=== PATIENT | female | born 1960 | race Caucasian/White ===

== ENCOUNTER → 2024-06-10 | Day surgery (SDC) | payer OTHER | END | disposition home or self-care (01) | LOC: JRADIR 09:27 | PROVIDERS: ATTEND Internal Medicine Endocrinology, Diabetes & Metabolism | PROC: 0GBH3ZX Excision of Right Thyroid Gland Lobe, Percutaneous Approach, Diagnostic (ICD-10-PCS; principal; 2024-06-10) | DX: E04.1 Nontoxic single thyroid nodule (principal) | CPT/HCPCS: 10005; 76942; 88173; 88305-TC ==

== ENCOUNTER 2024-11-25 06:11 | Day surgery (SDC) | payer OTHER ==
[2024-11-22 13:10] VITALS: BMI 37.7
[2024-11-25] MEDS ORDERED: VANCOMYCIN 1,000 MG VIAL (RESTRICTED TO ID ONLY) ONE (07:13)
[2024-11-25] MEDS ORDERED: KETOROLAC TROMETHAMINE 60 MG/2 ML VIAL ONE (07:13)
[2024-11-25] MEDS ORDERED: BUPIVACAINE HCL/PF 2.5 MG/ML - 30 ML VIAL IJ ONE (07:13)
[2024-11-25] MEDS ORDERED: MIDAZOLAM HCL 2 MG/2 ML SINGLE DOSE VIAL ONE ×3 (07:41→08:31)
[2024-11-25] MEDS ORDERED: FENTANYL CITRATE/PF 50 MCG/ML VIAL ONE (07:41)
[2024-11-25] MEDS ORDERED: ROPIVACAINE HCL/PF 100 MG/20 ML VIAL ONE (07:42)
[2024-11-25] MEDS ORDERED: ONDANSETRON 4 MG/2 ML VIAL ONE (08:05)
[2024-11-25] MEDS ORDERED: BUPIVACAINE HCL/PF 0.5% (5MG/ML) 10 ML VIAL ONE (08:08)
[2024-11-25] MEDS ORDERED: TRANEXAMIC ACID 1000 MG/10 ML VIAL ONE ×2 (08:19→10:18)
[2024-11-25] MEDS ORDERED: DEXAMETHASONE SOD PHOSPHATE 4 MG/1 ML VIAL ONE (08:22)
[2024-11-25] MEDS ORDERED: PROPOFOL 20 ML ONE (09:38)
[2024-11-25] MEDS ORDERED: MAG HYDROX/AL HYDROX/SIMETH 30 ML UNIT-DOSE CUP PO PRN (11:22)
[2024-11-25] MEDS ORDERED: MAGNESIUM HYDROX 2400MG/30ML ORAL SUSPENSION 30 ML CUP PO PRN (11:22)
[2024-11-25] MEDS ORDERED: ONDANSETRON 4 MG/2 ML VIAL IVPUSH PRN (11:26)
[2024-11-25] MEDS ORDERED: KETOROLAC TROMETHAMINE 30 MG/1 ML VIAL IVPUSH SCH ×2 (11:30→16:30)
[2024-11-25] MEDS: ACETAMINOPHEN 1000 MG/100 ML BAG IVPB ONE (11:35)
[2024-11-25] MEDS: LACTATED RINGERS SOLUTION 1,000 ML IV SCH ×2 (12:00→19:47)
[2024-11-25] MEDS ORDERED: CELECOXIB 200 MG CAPSULE PO SCH (15:00)
[2024-11-25] MEDS: ACETAMINOPHEN 1000 MG/100 ML BAG IVPB SCH (17:59)
[2024-11-25] MEDS: CEFAZOLIN 1 GM in DEXTROSE 5%-WATER - 50 ML IVPB SCH (17:59)
[2024-11-25] MEDS ORDERED: CEFAZOLIN SODIUM 1 GM in DEXTROSE 5%-WATER 100 ML IVPB SCH (18:00)
[2024-11-25] MEDS: ACETAMINOPHEN 500 MG TABLET (FP) PO SCH (19:47)
[2024-11-25] MEDS ORDERED: DEXAMETHASONE 4 MG TABLET (FP) PO SCH (20:00)
[2024-11-25] MEDS: DEXAMETHASONE 4 MG TABLET (FP) PO ONE (20:03)
[2024-11-25] MEDS: CELECOXIB 200 MG CAPSULE PO SCH (20:03)
[2024-11-25] MEDS: TRANEXAMIC ACID 1000 MG/10 ML VIAL IVPB ONE (20:03)
[2024-11-25] MEDS: ONDANSETRON 4 MG/2 ML VIAL IVPUSH PRN (20:14)
[2024-11-25] MEDS: ASPIRIN 81 MG CHEWABLE TABLETS PO SCH (21:24)
[2024-11-25] MEDS: HYDROXYCHLOROQUINE SO4 200 MG TABLET (FP) PO SCH (21:24)
[2024-11-25] MEDS: FAMOTIDINE 20 MG TABLET PO SCH (21:24)
[2024-11-25] MEDS: SENNOSIDES/DOCUSATE COMBO (SENNA PLUS) TABLET (UD) PO SCH (21:25)
[2024-11-25] MEDS: ASCORBIC ACID 500 MG TABLET (FP) PO SCH (21:25)
[2024-11-26] MEDS: LEVOTHYROXINE NA 75 MCG TABLET (FP) PO SCH (06:18)
[2024-11-26 07:39] LABS: ABSOLUTE IMMATURE GRANULOCYTES 0.02 x10^3/uL (0.0-0.031); BASOPHILS # 0.01 x10^3/uL (0.01-0.08); EOSINOPHIL % 0.0 % (0.7-5.8); EOSINOPHILS # 0.00 x10^3/uL (0.04-0.36); MCHC 32.9 g/dl (32.2-35.5); MEAN CELL VOLUME 83.0 fl (79.4-94.8); MEAN PLT VOLUME 9.8 fl (9.4-12.3); MONOCYTE # 0.77 x10^3/uL (0.24-0.86); MONOCYTE % 6.2 % (4.7-12.5); RDW 13.0 % (12.4-16.4)
[2024-11-26 08:05] LABS: ALK PHOS 52.0 U/L (45-117); CO2 29.0 mmol/L (21-32); CREATININE 0.5 mg/dl (0.6-1.3); GLUCOSE,RANDOM 142.0 mg/dl (74-106); SGOT/AST 15.0 U/L (15-37); SGPT/ALT 20.0 U/L (7-52); TOT PROT 6.4 g/dl (6.4-8.2)
[2024-11-26 09:16] VITALS: BP 133/74; PULSE 59; RESP 18; TEMP 98.2
[2024-11-26] MEDS: MULTIVITAMINS (DAILY MVI) TABLET (FP) PO SCH (09:23)
[2024-11-26] MEDS: DEXAMETHASONE 4 MG TABLET (FP) PO ONE (09:23)
[2024-11-26] MEDS: amLODIPine BESYLATE 10 MG TABLET (FP) PO SCH (09:23)
[2024-11-26] MEDS ORDERED: ERGOCALCIFEROL (VIT D2) 50,000 UNIT (1.25 MG) CAPSULE PO SCH (10:00)
[2024-11-26] MEDS ORDERED: DEXAMETHASONE 4 MG TABLET (FP) PO ONE (10:00)
[2024-11-26] MEDS ORDERED: amLODIPine BESYLATE 10 MG TABLET (FP) PO SCH (10:00)
== END 2024-11-26 11:27 | disposition home or self-care (01) ==
LOC: FASUSAT 06:11 → FM/S 12:13 → FASUSAT 11-26 11:27
PROC: 0SRC0J9 Replacement of Right Knee Joint with Synthetic Substitute, Cemented, Open Approach (ICD-10-PCS; principal; 2024-11-25 08:39)
DX: M17.31 Unilateral post-traumatic osteoarthritis, right knee (principal)
CPT/HCPCS: 36415; 73560-TC-RT-FY; 80053; 85025; 94760; 97010-GP; 97116-GP; 97162-GP; C1776